=== PATIENT | male | born 1970 | race Caucasian/White ===

== ENCOUNTER 2017-04-26 21:07 | Emergency (ER) | payer BC ==
[~2017-04-26] VITALS: Ht 185.4 cm; Wt 104.3 kg
[~2017-04-26 21:07] MED LIST: ACID REDUCER20 MG PO; ALBUTEROL17 G1 INH; ALBUTEROL17 GM INH; ANTIVERT PO; AZITHROMYCIN250 MG PO; BACTRIM DS TABL1 TA1 PO; BENADRYL PO; BIAXIN PO; CIPRO PO; CLINDAMYCIN HC300 MG PO; COLACE PO; DELTASONE20 MG PO; DICLOFENAC PO; DOXYCYCLINE HY100 M1 PO; DOXYCYCLINE150 MG PO; ERYTHROMYCIN B500 MG PO; FLAGYL PO; FLEXERIL PO; FLEXERIL10 MG; FLEXERIL10 MG PO; GUAIFENESIN W/C10 ML PO; HYDROCODON-ACE1 EAC9 PO; IBUPROFEN; IBUPROFEN PO; IBUPROFEN800 MG; IBUPROFEN800 MG PO; ILOTYCIN1 GM OD; LOPID600 MG PO; LORTAB 101 TAB 10/5 PO; MEDROL DOSEPAK4 MG PO; MEDROL PO; MEDROL4 MG/DOSE- PO; METOPROLOL SUCC25 MG PO; METRONIDAZOLE PO; MUCINEX DM1 TAB.SR . PO; NO MEDICATIONS; NORCO 7.5-3251 EACH PO; NORCO1 TAB 10/3 PO; PHENERGAN25 M1 PO; PREDNISONE PO; PREDNISONE50 MG PO; PRILOSEC20 MG PO; PROCTOFOAM-HC10 G1 TOP; ROBAXIN 750750 MG PO; ROBITUSSIN COU118 ML PO; SKELAXIN PO; TRIAMCINOLONE AC1 GM; TUSSIONEX PENN480 ML PO; TYLENOL #3 PO; ULTRAM PO; VIBRAMYCIN100 M1 PO; VICODIN 5/1 TAB 5/50 PO; VICODIN PO; VOLTAREN50 MG PO; ZESTRIL10 MG; ZESTRIL10 MG PO; ZITHROMAX PO; ZITHROMAX1 G/PKT PO; ZOFRAN 4 MG4 MG/2 ML IVP; ZOFRAN ODT4 MG PO; ZOFRAN ODT4 MG/UDTAB PO; [UNRECOGNIZED DRUG - OTHER] PO
[2017-04-26] MEDS ORDERED: NO MEDICATIONS (21:53)
[2017-04-26 23:54] LABS: BASOPHIL# 0.2 X10e3 (0-0.3); BASOPHIL% 1.1 % (0-2.5); EOSINOPHIL# 0.7 X10e3 (0-0.7); EOSINOPHIL% 4.6 % (0.0-7.0); HEMATOCRIT 47.9 % (38.0-50.0); HEMOGLOBIN 15.8 gm/dL (13.0-16.0); LYMPHOCYTE# 5.2 X10e3 (1.0-3.5); LYMPHOCYTE% 33.6 % (17.0-45.0); MEAN CORPUSCULAR HEMOGLOBIN 27.3 PG (28-34); MEAN CORPUSCULAR HGB CONC 32.9 g/dL (30-36); MEAN PLATELET VOLUME 10.1 FL (6.5-11.5); MONOCYTE# 1.3 X10e3 (0-1.0); MONOCYTE% 8.6 % (3.0-12.0); NEUTROPHIL# 8.1 X10e3 (1.5-7.1); NEUTROPHIL% 52.1 % (40-75); PLATELET COUNT 192 X10e3 (140-420); RED BLOOD COUNT 5.77 X10e (3.90-5.60); RED CELL DISTRIBUTION WIDTH 13.8 % (11.0-15.5); WHITE BLOOD COUNT 15.5 X10e3 (4.0-10.5)
[2017-04-26 23:55] LABS: URINE SOURCE CLEAN CATCH
[2017-04-26 23:57] LABS: URINE APPEARANCE CLEAR; URINE BLOOD 3+ (NEG); URINE COLOR YELLOW; URINE GLUCOSE NEG (NORM); URINE KETONE TRACE (NEG); URINE LEUKOCYTE ESTERASE NEG (NEG); URINE NITRATE NEG (NEG); URINE PH 5.5 (5-8); URINE PROTEIN TRACE (NEG); URINE SPECIFIC GRAVITY >=1.030 (1.003-1.035); URINE UROBILINOGEN 0.2 MG/DL (NORM)
[2017-04-27 00:02] LABS: MICRO INDICATED? YES; URINE BILIRUBIN NEG (NEG)
[2017-04-27 00:03] LABS: CULTURE INDICATED? NO; URINE BACTERIA NEG (NEG); URINE CRYSTALS CALCIUM OXALATE /[HPF]; URINE MUCUS PRESENT; URINE RBC 100-200 /[HPF] (0-2); URINE SQUAMOUS EPITHELIAL CELL OCCAS /[HPF]
[2017-04-27 00:06] LABS: DIFF IND YES
[2017-04-27 00:19] LABS: ALBUMIN SERUM 4.3 g/dL (3.5-5.0); BILIRUBIN,TOTAL 0.3 mg/dL (0.2-2.0); BUN/CREATININE RATIO 21.11; CALCIUM SERUM 9.6 mg/dL (8.4-10.2); CREATININE SERUM 0.9 mg/dL (0.6-1.4); GLOM FILT RATE Estimated 101.4 mL/min (>60); POTASSIUM 3.6 mmol/L (3.5-5.1); PROTEIN TOTAL SERUM 7.6 g/dL (6.0-8.3)
[2017-04-27 00:22] LABS: ANISOCYTOSIS SL; PLATELET ESTIMATE NORMAL (NORMAL); POIKILOCYTOSIS SL
== END 2017-04-27 00:51 | disposition home or self-care (01) ==
LOC: SED 21:07
PROVIDERS: Physician Assistant
DX: B34.9 Viral infection, unspecified (principal); R31.9 Hematuria, unspecified; I10 Essential (primary) hypertension; F32.9 Major depressive disorder, single episode, unspecified; F41.9 Anxiety disorder, unspecified; Z87.442 Personal history of urinary calculi; F17.200 Nicotine dependence, unspecified, uncomplicated; Z88.0 Allergy status to penicillin; Z88.8 Allergy status to other drugs, medicaments and biological substances
CPT/HCPCS: 36415; 80053; 81003; 85025; 99283